=== PATIENT | male | born 1965 | race Hispanic/Latino ===

== ENCOUNTER 2023-06-05 17:11 | Emergency (ER) | payer OTHER, SELFPAY ==
[2023-06-05 17:26] VITALS: BP 146/81; PULSE 84; RESP 18; TEMP 36.6; O2SAT 97
--- NOTE | 2023-06-05 18:02 | ED.SKABFB ---
HPI - Skin/Abscess/Foreign Bdy General Chief complaint: Skin/Abscess/Foreign Body Stated complaint: Insect Bite Time Seen by Provider: 06/05/23 17:54 Source: patient and RN notes reviewed Mode of arrival: ambulatory Limitations: no limitations History of Present Illness HPI narrative: Patient presents today complaining of an insect bite and possible infection to the right lower leg. States he was bit 5 days ago and has been scratching the leg. Reports redness and pain surrounding the bite area. He has been applying some ointment without relief. History of diabetes for which he takes glimepiride, metformin, Invokana, and alogliptin. Related Data Home Medications Medication Instructions Recorded Confirmed alogliptin 25 mg tablet (Nesina) mg 06/05/23 atorvastatin 80 mg tablet mg 06/05/23 canagliflozin 300 mg tablet mg 06/05/23 (Invokana) glimepiride 4 mg tablet mg 06/05/23 metformin 500 mg tablet,extended mg PO 06/05/23 release 24 hr sildenafil 100 mg tablet (Viagra) mg 06/05/23 terbinafine HCl 1 % topical cream applic topical 06/05/23 Allergies Allergy/AdvReac Type Severity Reaction Status Date / Time No Known Allergies Allergy Verified 06/05/23 17:21 Review of Systems Review of Systems: CONSTITUTIONAL: Denies body aches, fever, chills, or sweats. EYES: Denies visual changes, redness, or discharge. ENT: Denies rhinorrhea, congestion, sore throat, or otalgia. CARDIOVASCULAR: Denies chest pain, palpitations, or edema. RESPIRATORY: Denies cough or dyspnea. GASTROINTESTINAL: Denies abdominal pain, nausea, vomiting, or diarrhea. GENITOURINARY: Denies dysuria or hematuria. SKIN: + swelling and wound to right lower leg MUSCULOSKELETAL: Denies back pain, joint pain, or myalgia. NEUROLOGIC: Denies headache, numbness, tingling, or weakness. PSYCH: Denies depression or anxiety. [facility] Past Medical History Medical History (Updated 06/05/23 @ 18:07 by Melissa Bhardwaj, ECONOMICS ANALYST, ) Diabetes Comments At time of signature, I have reviewed and agree with nursing past medical, surgical, social and family history unless otherwise noted. Please see nursing chart for further information. There is no relevant family history pertinent to the presenting complaint Exam Narrative: GENERAL: Well-appearing, well-nourished, and in no acute distress. HEAD: Normocephalic, atraumatic. EYES: EOMI. No redness or drainage. Conjunctivae normal. ENT: Mucous membranes pink and moist. NECK: Normal AROM. CHEST: No respiratory distress. EXTREMITIES: Right lower le.5 x 1.5 cm superficial scabbed area to the lateral calf with surrounding erythema and edema that is tender to palpation. No fluctuance. Tenderness to the area extends around the scabbed area approximately 10 cm in each direction. Distal sensation intact. Capillary refill normal. SKIN: Warm, dry, no rash. Capillary refill normal. Normal skin turgor. NEURO: No focal deficits. Alert and oriented x3. Gait steady. PSYCH: Normal affect. No signs of depression or anxiety. Course Course Level of Care: Express Care Visit Vital Signs Vital signs: Vital Signs Temperature 97.9 F 06/05/23 17:26 Pulse Rate 84 06/05/23 17:26 Respiratory Rate 18 06/05/23 17:26 Blood Pressure 146/81 H 06/05/23 17:26 Pulse Oximetry 97 06/05/23 17:26 Oxygen Delivery Room Air 06/05/23 17:26 Temperature 97.9 F 06/05/23 17:26 Pulse Rate 84 06/05/23 17:26 Respiratory Rate 18 06/05/23 17:26 Blood Pressure 146/81 H 06/05/23 17:26 Pulse Oximetry 97 06/05/23 17:26 Oxygen Delivery Room Air 06/05/23 17:26 Reviewed MDM - Skin/Abscess/Foreign Bdy MDM Narrative Medical decision making narrative: Patient will be started on Keflex for his infected scab/possible insect bite. Care instructions given. Differential Diagnosis Differential diagnosis: Likely abscess of skin or subcutaneous tissue, cellulitis and impetigo Critical Care Time C
== END 2023-06-05 18:11 | disposition home or self-care (01) ==
PROVIDERS: Emergency Provider Nurse Practitioner
DX: L03.115 Cellulitis of right lower limb (principal); E11.9 Type 2 diabetes mellitus without complications
CPT/HCPCS: 99203; G0463